=== PATIENT | female | born 2000 | race Hispanic/Latino ===

== ENCOUNTER 2019-01-13 11:11 | Day surgery (SDC) | payer OTHER ==
--- NOTE | 2019-01-13 11:30 | PDOC.FPROB ---
FMR OB H&P: HPI - History of Present Illness Chief Complaint: Contractions, Leaking of fluid Indentification: 18 year old at 36.6 wks by 26.3 wk sono History of Present Illness: 18 year old female at 36.6 wks (MILES 02/04/19) presents with contractions and leaking of fluid. Patient states contractions started around 1 PM yesterday. They were 5-10 minutes apart but not very strong. Patient states that when she woke up in the middle of the night, her panties were soaked. She is concerned that she may have ruptured. Patient denies vaginal bleeding. Patient endorses good movement. Primary Care Physician: Dallas ARGUELLES FMR OB H&P: Current - Care : 1 Para: 0 Gestational age: 36.6 wks Due date: 02/04/2019 Dating Criteria: 26.3 wk sono - OB Labs Blood type: B RH: positive Antibody Screen: negative HIV: negative RPR: negative HepBsAg: negative Rubella: immune Gonorrhea: negative Chlamydia: negative 1 hour gtt: 96 GBS: unknown FMR OB H&P: History - Past Medical History PMH: Denies - OB History OB History: G1 Late to care - [employer] History [employer] History: No history of STDs - Surgical History Sx History: Denies - Social History Social History: Denies alcohol, tobacco, or drug use - Family History Family History: Noncontributory FMR OB H&P: Medications - Current Home Medications: Medication Instructions Recorded Confirmed Type Fluticasone Propionate [Flonase 2 spray EA NARE DAILY #0 bot 05/07/13 Rx Nasal [place]] Acetaminophen [Tylenol] 325 mg PO PRN PRN 01/13/19 01/13/19 History Ferrous Sulfate [Iron] 325 mg PO DAILY 01/13/19 01/13/19 History Vit 108/Iron/Folic AC 1 tablet PO DAILY 01/13/19 01/13/19 History [ One Tablet] Allergies/Adverse Reactions: Allergies Allergy/AdvReac Type Severity Reaction Status Date / Time No Known Allergies Allergy Verified 01/13/19 11:40 FMR OB H&P: ROS - Review of Systems General: denies: fever/chills, weight/appetite/sleep changes Eyes: denies: vision changes, scotomas ENT: denies: nasal congestion, rhinorrhea, sore throat Cardiovascular: denies: chest pain, palpitation, edema Respiratory: denies: cough, congestion Gastrointestinal: denies: nausea, vomiting Genitourinary (Female): reports: contractions, other (leaking of fluid). denies : dysuria, vaginal bleeding Musculoskeletal: denies: pain, stiffness Neurologic: denies: numbness, syncope Hematologic/Lymphatic: denies: prolonged or excessive bleeding Psychological: denies: depression, anxiety FMR OB H&P: Vital Signs - Maternal Vital signs: BP 124/84 Pulse 78 Afebrile - Heart Tones Baseline: 140 Variability: moderate Acceleration: present Deceleration: absent Category: category 1 [place] contractions every: q3-5 min FMR OB H&P: Physical Exam - Physical Exam General: NAD, awake, alert and oriented HEENT: MMM, grossly normal vision, grossly normal hearing Heart: RRR, no murmurs/rubs/gallops General: CTAB, no respiratory distress Abdomen: soft, gravid, non-tender Musculoskeletal: pulses present, FROM in all four extremities Neurological: no tremor, no focal deficit Skin: no rash, capillary refill <2 seconds Lymphatic: no unusual bruising or bleeding, no purpura Psychiatric: intact recent and remote memory, good judgement and insight, normal mood and affect FMR OB H&P: A/P - Problem List (1) Intrauterine Status: Acute Code(s): Z34.90 - ENCNTR FOR SUPRVSN OF NORMAL , UNSP, UNSP TRIMESTER Comment: agree with a&p by dr peña Disposition: 18 year old at 36.6 wks presents with contractions and leaking of fluid 1. sIUP - at 36.6 wks by 26.3 wk sono - uncomplicated - NST reassuring - Cervical check: /0/-3 at 12:25 PM 01/13; contractions on monitor, but patient not feeling them. - Amnisure negative - GBS pending (might have update this afternoon) 2. Leaking of fluid - Amnisure negative (obtained sample from sterile - VP3 pending - Sterile spec exam with moderate amount of white vaginal discharge - Return precautions provided - PO hydrate 3. Elevated BP in clinic with diagnosis of gHTN - Patient sent for pre-E labs on Monday - CMP WNL, Hg/Hct 10.9/34.0, urine protein/creatinine (0.104) - No evidence of Pre-E - BP wnl today Dispo: Plan for d/c. Patient does not appear to be in labor and does not appear to be ruptured. Return precautions provided. Discussion: Date/Time: 01/13/191125 This H&P was discussed with Dr. Valencia who agrees with the above documentation and plan. Signature: Xiao Peña, PGY-2
[2019-01-13 11:52] VITALS: BMI 33.5
[2019-01-13 12:48] LABS: Amnisure Test No Membranes Rupture (No Rupture)
[2019-01-13 12:50] LABS: Amnisure Internal Control QC ACCEPTABLE (ACCEPTABLE)
== END 2019-01-13 13:11 | disposition home health service (06) ==
LOC: L&D/OP 11:11
PROVIDERS: ATTEND Obstetrics & Gynecology
DX: O99.89 Other specified diseases and conditions complicating pregnancy, childbirth and the puerperium (principal); N89.8 Other specified noninflammatory disorders of vagina; O13.3 Gestational [pregnancy-induced] hypertension without significant proteinuria, third trimester; Z3A.36 36 weeks gestation of pregnancy; Z79.899 Other long term (current) drug therapy
CPT/HCPCS: 59025; 84112; 87480; 87510; 87660; 99284

== ENCOUNTER 2019-01-23 00:05 | Inpatient (IN) | payer OTHER ==
[2019-01-23 00:28] VITALS: BMI 34.3
--- NOTE | 2019-01-23 00:53 | PDOC.LDHP ---
Labor and Delivery H&P Chief complaint: loss of fluid HPI: 18 y/o at 38.2 wks by 26wk US presents today with LOF earlier this evening at 2330 She reports continual leaking of clear fluid since that time, intermittent contractions. She is feeling baby move and denies vaginal bleeding, dysuria, or lower pelvic pain. She reports that she had a negative GBS swab in [facility] 3-4 weeks ago, but we do not have record of that. Current gestational age (weeks): 38 (.2) Due date: 02/04/19 Dating criteria: second trimester ultrasound Grav: 1 Para: 0 OB History Details: late to [facility] Current complications: none Abnormal US findings: No Past Medical History: none Current medications: pre- vitamins Previous surgical history: none Allergies/Adverse Reactions: Allergies Allergy/AdvReac Type Severity Reaction Status Date / Time No Known Allergies Allergy Verified 01/13/19 11:40 Social history: none - Physical Exam Vital signs reviewed and normal: yes General: NAD Heart: RRR Lungs: CTAB Abdomen: NTTP Extremeties: no edema FHT: category 1 (baseline 140, accels, no decels), variability present - Vaginal Exam cm dilated: 3 (midposition, soft) Effacement: 50% Station: -2 - OB Labs Blood type: B RH: positive Antibody Screen: negative HIV: negative RPR: negative HEPSAg: negative 1 hour GCT: negative GBS: unknown Urine drug screen: not done Rubella: immune Additional Labs: GC neg - Assessment L&D Assessment: term rupture in membranes - Plan Plan: admit to L&D -: - expectant mgmt, recheck cervix in 2 hours, consider labor augmentation at that time - GBS unknown, less than 18hrs ruptured, no hx of positive GBS culture - continuous monitoring Addendum - Attending - Attending Attestation Date/Time: 01/23/19 5924 I personally evaluated the patient and discussed the management with Dr. Maldonado. I agree with the History, Examination, Assessment and Plan documented above with any addition or exceptions noted below. Early term SROM by best dates available, GBS unknown. Admit for delivery.
[2019-01-23 01:47] LABS: Amnisure Test RUPTURE DETECTED (No Rupture)
[2019-01-23 01:48] LABS: Amnisure Internal Control QC ACCEPTABLE (ACCEPTABLE)
[2019-01-23] MEDS ORDERED: Carboprost 250 MCG/ML AMP IM PRN (01:54)
[2019-01-23] MEDS ORDERED: Lidocaine 1% (PF) 30 ML VIAL SC PRN (01:54)
[2019-01-23] MEDS ORDERED: Ondansetron PF 4 MG/2 ML Vial IVP PRN ×2 (01:54→15:21)
[2019-01-23] MEDS ORDERED: Diphenoxylate HCl/Atropine Tablet PO PRN (01:54)
[2019-01-23] MEDS ORDERED: NS / Oxytocin 40 units/1000ml 1,000 ML IV PRN (01:54)
[2019-01-23] MEDS ORDERED: Promethazine HCl 25 MG/ML VIAL IM PRN ×2 (01:54→15:21)
[2019-01-23] MEDS ORDERED: Methylergonovine 0.2 MG/ML VIAL IM PRN (01:54)
[2019-01-23] MEDS ORDERED: Misoprostol 200 MCG TAB PR PRN (01:54)
[2019-01-23] MEDS ORDERED: Acetaminophen 500 MG TAB PO PRN (01:54)
[2019-01-23 02:42] LABS: Hemoglobin 12.1 g/dL (12.0-16.0); Mean Corpuscular HGB CONC 32.5 g/dL (32.0-36.0); Mean Corpuscular Hemoglobin 25.3 pg (25.0-35.0); Mean Corpuscular Volume 77.9 fL (78.0-98.0); Mean Platelet Volume 11.6 fL (7.4-10.4); Platelet Count 200 thou/uL (130-400); RBC Distribution Width 20.7 % (11.5-14.5); Red Blood Cell (RBC) Count 4.78 mill/uL (4.00-5.20); White Blood Cell (WBC) Count 11.5 thou/uL (4.8-10.8)
[2019-01-23 03:18] LABS: HBSAg Index 0.27 S/CO (0-0.99); Hep B Surf Ag Non-Reactive S/CO (NonReactive)
--- NOTE | 2019-01-23 03:51 | PDOC.LDPN ---
Labor & Delivery Progress Note - Subjective Subjective: painful contractions - Objective Vital signs reviewed and normal: yes General: breathing through contractions Uterine fundus: non tender Dilation: 5 Effacement: 75% Station: -1 FHT: category 1 (baseline 150, accels present, no decels ), variability present [place] contractions every: 3 mins - Assessment (1) Intrauterine Code(s): Z34.90 - ENCNTR FOR SUPRVSN OF NORMAL , UNSP, UNSP TRIMESTER Current Visit: No Status: Acute Plan: continue plan of care -: - expectant mgmt, recheck cervix in 2 hours - GBS unknown, less than 18hrs ruptured, no hx of positive GBS culture - continuous monitoring Addendum - Attending - Attending Attestation Date/Time: 01/23/19 0800 I personally evaluated the patient and discussed the management with Dr. Maldonado. I agree with the History, Examination, Assessment and Plan documented above with any addition or exceptions noted below.
[2019-01-23 04:42] LABS: Syphilis Antibody Nonreactive (Nonreactive); Syphilis Antibody Index 0.03 S/CO (<1.00 Non-Reactive)
--- NOTE | 2019-01-23 07:34 | PDOC.LDPN ---
Labor & Delivery Progress Note - Subjective Subjective: painful contractions - Objective Vital signs reviewed and normal: yes General: NAD Uterine fundus: non tender Dilation: 6 Effacement: 75% Station: -1 FHT: category 1 (baseline 140, no decels, acels present ) [place] contractions every: 4 mins - Assessment (1) Intrauterine Code(s): Z34.90 - ENCNTR FOR SUPRVSN OF NORMAL , UNSP, UNSP TRIMESTER Current Visit: No Status: Acute Plan: continue plan of care -: - expectant mgmt, recheck cervix in 2 hours - GBS unknown, less than 18hrs ruptured, no hx of positive GBS culture - continuous monitoring Addendum - Attending - Attending Attestation Date/Time: 01/23/19 0800 I personally evaluated the patient and discussed the management with Dr. Maldonado. I agree with the History, Examination, Assessment and Plan documented above with any addition or exceptions noted below. Continue expectant management; initiate pit if no change. PCN if ~ 18 hours.
[2019-01-23] MEDS: Butorphanol Tartrate 1 MG/ML VIAL ONE ×2 (09:56→12:45)
--- NOTE | 2019-01-23 10:32 | PDOC.OBLPN ---
FMR OB Labor PN: Subj - Interval History Hospital Day: 1 Chief Complaint: SROM Indentification: Interval History: Progressed to active labor w/o augmentation. No change since last check. FMR OB Labor PN: Obj - Maternal Vital signs: BP: 110/70 HR: 75 - Procedures Resuscitative measures: maternal IV fluids, maternal position change FMR OB Labor PN: Exam - Physical Exam General: NAD, awake, alert and oriented HEENT: normocephalic and atraumatic, grossly normal vision, grossly normal hearing General: no respiratory distress Abdomen: gravid Neurological: cranial nerves II through XII intact, sensation to pain,touch and proprioception grossly normal, no focal deficit Skin: no rash, good tugor Psychiatric: intact recent and remote memory, good judgement and insight, normal mood and affect - Pelvic Exam Vulva: normal hair distribution, appropriate suman stage, no masses, no lesions , no blood SVE: 6/80/-2 Carrillo score: 11 Membranes: ruptured Presentation: cephalic FMR OB Labor PN: Data - Labs Lab results: Laboratory Results - last 24 hr 01/23/19 01/23/19 01/23/19 01:10 02:26 02:26 WBC RBC Hgb Hct MCV MCH MCHC RDW Plt Count MPV Amnio Swab Test RUPTURE DETECTED H Syphilis IgG/IgM Ab Nonreactive Hep Bs Antigen Non-Reactive Blood Type Antibody Screen 01/23/19 01/23/19 01/23/19 02:26 02:26 03:32 WBC 11.5 H RBC 4.78 Hgb 12.1 Hct 37.3 MCV 77.9 L MCH 25.3 MCHC 32.5 RDW 20.7 H Plt Count 200 MPV 11.6 H Amnio Swab Test Syphilis IgG/IgM Ab Hep Bs Antigen Blood Type B POSITIVE B POSITIVE Antibody Screen NEGATIVE FMR OB Labor PN: A/P - Problem List (1) Late care Current Visit: Yes Status: Acute Code(s): O09.30 - SUPRVSN OF PREG W INSUFFICIENT ANTENAT CARE, UNSP TRIMESTER (2) Intrauterine Current Visit: No Status: Acute Code(s): Z34.90 - ENCNTR FOR SUPRVSN OF NORMAL , UNSP, UNSP TRIMESTER Disposition: 18YO @ 38.2 weeks who presented to L&D due to LOF and was found to have ruptured and was in latent labor. sIUP: - SVE check @ ~ 10:00 unchanged from last check @ ~0730 @ 6/-2. Irregular contractions noted on monitor but FHT reassuring w/ baseline in the 130s & variability noted. - No epidural but pain control w/ IV stadol. - Carrillo score of 11 so will start on IV pitocin for labor augmentation. Will recheck in ~2 hours. GBS negative: - Confirmed w/ CPL this AM. No indication for intrapartum abx. Late to care: - Aware, routine labs ordered on admission including type and screen and RPR and Hep B. STI screening negative. Discussion: Date/Time: 01/23/19 1031 This H&P was discussed with Dr. Cardona and Dr. Robison who agree with the above documentation and plan.
[2019-01-23] MEDS: NS w/ Oxytocin 10 units 500 ML IV SCH (11:30)
[2019-01-23] MEDS ORDERED: ePHEDrine/0.9% NaCl/PF SYRINGE 50 mg/10 ml ONE (12:00)
[2019-01-23] MEDS ORDERED: Butorphanol Tartrate 1 MG/ML VIAL SLOW IVP PRN (12:39)
--- NOTE | 2019-01-23 12:43 | PDOC.OBLPN ---
FMR OB Labor PN: Subj - Interval History Hospital Day: 1 Chief Complaint: LOF Indentification: Interval History: Pitocin started around ~10:00. No significant cervical changes since. FMR OB Labor PN: Obj - Maternal Vital signs: BP: 120/83 HR: 73 - Procedures Resuscitative measures: maternal IV fluids, maternal position change FMR OB Labor PN: Exam - Physical Exam General: awake, alert and oriented, other (moderate distress 2/2 painful contractions) HEENT: normocephalic and atraumatic, grossly normal vision, grossly normal hearing General: no respiratory distress Abdomen: gravid Musculoskeletal: FROM in all four extremities Neurological: cranial nerves II through XII intact, sensation to pain,touch and proprioception grossly normal, no focal deficit Skin: no rash, good tugor Psychiatric: intact recent and remote memory, good judgement and insight, normal mood and affect - Pelvic Exam Vulva: normal hair distribution, appropriate suman stage, no discharge, no blood SVE: 6.5/80/-1 Carrillo score: 11 Membranes: SROM Presentation: cephalic FMR OB Labor PN: Data - Labs Lab results: Laboratory Results - last 24 hr 01/23/19 01/23/19 01/23/19 01:10 02:26 02:26 WBC RBC Hgb Hct MCV MCH MCHC RDW Plt Count MPV Amnio Swab Test RUPTURE DETECTED H Syphilis IgG/IgM Ab Nonreactive Hep Bs Antigen Non-Reactive Blood Type Antibody Screen 01/23/19 01/23/19 01/23/19 02:26 02:26 03:32 WBC 11.5 H RBC 4.78 Hgb 12.1 Hct 37.3 MCV 77.9 L MCH 25.3 MCHC 32.5 RDW 20.7 H Plt Count 200 MPV 11.6 H Amnio Swab Test Syphilis IgG/IgM Ab Hep Bs Antigen Blood Type B POSITIVE B POSITIVE Antibody Screen NEGATIVE FMR OB Labor PN: A/P - Problem List (1) Late care Current Visit: Yes Status: Acute Code(s): O09.30 - SUPRVSN OF PREG W INSUFFICIENT ANTENAT CARE, UNSP TRIMESTER (2) Intrauterine Current Visit: No Status: Acute Code(s): Z34.90 - ENCNTR FOR SUPRVSN OF NORMAL , UNSP, UNSP TRIMESTER Disposition: 18YO @ 38.2 weeks who presented to L&D due to LOF and was found to have ruptured membranes in latent labor. sIUP: - SVE check @ ~ 12:30 minimally changed from last check @ ~10:00. Most recent check ~6.5/80/-1. Regular contractions ~q3-4 minutes noted on strip reassuring FHTs w/ baseline in the 130s & variability & accels noted. - No epidural yet per mom so will continue pain control w/ IV stadol Q1H PRN. - Will continue IV pitocin for labor augmentation. Will recheck in ~2 hours or sooner if patient starts feeling more vaginal pressure. GBS negative: - Confirmed w/ CPL this AM. No indication for intrapartum abx. Late to care: - Aware, routine labs ordered on admission. RPR & Hep B screening negative. B+ and Ab negative. Discussion: Date/Time: 01/23/19 5489 This H&P was discussed with Dr. Cardona and Dr. Robison who agree with the above documentation and plan.
[2019-01-23] MEDS ORDERED: Fentanyl 4 mcg/Bup 0.1% Cadd 100 ML ONE (14:35)
[2019-01-23] MEDS ORDERED: Lidocaine 1.5%/Epinephrine 1:200,000 5 ML AMPUL IJ ONE (14:36)
[2019-01-23] MEDS ORDERED: Acetaminophen 325 MG TAB PO PRN (15:21)
[2019-01-23] MEDS ORDERED: ePHEDrine/0.9% NaCl/PF SYRINGE 50 mg/10 ml SLOW IVP PRN (15:21)
[2019-01-23] MEDS ORDERED: Naloxone HCl 0.4 mg/ml Vial IVP PRN ×2 (15:21)
[2019-01-23] MEDS ORDERED: diphenhydrAMINE 50 MG/ML VIAL IVP PRN (15:21)
[2019-01-23] MEDS ORDERED: Eucerin (Mineral Oil/Petrolatum,White) 30 gm Jar TOP PRN (15:21)
[2019-01-23] MEDS ORDERED: Lactated Ringer's 500 ML IV PRN (15:21)
[2019-01-23] MEDS ORDERED: Fentanyl 4 mcg/Bupivacaine 0.1% Cassette 100 ML EPIDURAL SCH (15:30)
[2019-01-23] MEDS ORDERED: Communication Order-Pharmacy FS SCH (15:30)
[2019-01-23] MEDS ORDERED: Milk Of Magnesia 30 ML UDCUP PO PRN (18:01)
[2019-01-23] MEDS ORDERED: Bisacodyl 10 MG SUPP PR PRN (18:01)
[2019-01-23] MEDS ORDERED: Adacel (T-DAP) 0.5 ML SYRINGE IM ONE (18:01)
[2019-01-23] MEDS ORDERED: Lanolin Ointment 7 GM TUBE TOP PRN (18:01)
[2019-01-23] MEDS ORDERED: NS / Oxytocin 40 units/1000ml 1,000 ML IV SCH (18:15)
--- NOTE | 2019-01-23 18:15 | PDOC.OPDEL ---
OB Operative/Delivery Note Delivery Dr/Surgeon: Balwinder Assist: Ronnie Pre-Delivery Diagnosis: ruptured membrane Procedure/Post Delivery Dx: spontaneous vaginal delivery Weeks gestation: 38 (38.2 weeks) Anesthesia: epidural - Additional Findings/Plan Placenta delivered: spontaneous Repaired Obstetrical Laceration: 1st degree Estimated blood loss: 112 mL Compilations/Other Findings: Delivering Physician: Dr. Paris Britt/Dr. Ashley Trujillo Attending: Dr. Ramses Rosado Procedure: Spontaneous Vaginal Delivery Anesthesia: epidural QBL: 112 ml Pre-op Diagnosis: 1. Term intrauterine in labor 2. late to care Post-op Diagnosis: 1. Term intrauterine , delivered 2. same as above Indications: A 18y/o female presents in latent labor after SROM at home. Delivery Note: This is 18yo F @ 38.2 wks who delivered a viable M at 17:40. Following an uneventful antepartum course, a vigorous male was delivered over a 1st degree right side wall laceration in the occipitoanterior position. Anterior Shoulder and then remainder of the body delivered. No nuchal cord. Cord clamped and cut and cord blood collected. Placenta delivered intact in the [place] presentation with a 3 vessel cord noted. Fundal massage was performed and the fundus was firm. The cervix and vagina were inspected and fa first degree laceration was noted in the right side perineal wall and repaired with 2-0 chromic gut in the usual fashion with good approximation and hemostasis. Infant went to nursery in good condition for routine care. Apgars were 9/9 at 1 & 5 minutes, respectively. Patient tolerated delivery well and went to after routine recovery/care. Post delivery plan: routine recovery Addendum - Attending - Attending Attestation Date/Time: 01/23/191909 I was present for the entire delivery and repair. AG 07/15. qbl 112. Counts correct.
[2019-01-23] MEDS: Docusate Calcium (SURFAK) 240 MG CAP PO SCH (22:52)
[2019-01-23] MEDS: Ibuprofen 800 MG TAB PO SCH (22:52)
[2019-01-23] MEDS ORDERED: Benzocaine/Menthol 20-0.5% 60 ML CAN TOP PRN (23:10)
[2019-01-24] MEDS: Ibuprofen 800 MG TAB PO SCH ×3 (05:42→21:04)
[2019-01-24] MEDS ORDERED: Acetaminophen/Codeine 30-300mg Tablet PO PRN (05:42)
--- NOTE | 2019-01-24 05:57 | PDOC.OBPPN ---
FMR OB PN: Subj - Interval History Hospital Day: 2 Day: 1 Indentification: Interval History: PP day #1 s/p w/ 1st degree side wall laceration s/p repair. FMR OB PN: Obj - Maternal Vital signs: BP: 126/75 HR: 99 RR: 16 Tmax: 98.8F O2 Sat: 100% on RA - Pain Management Intervention: oral medication FMR OB PN: Exam - Physical Exam General: NAD, awake, alert and oriented HEENT: normocephalic and atraumatic, MMM, conjunctiva clear, grossly normal vision, grossly normal hearing Neck: supple, FROM Breast: symmetric, no erythema Heart: RRR, normal S1/S2, no murmurs/rubs/gallops, pulses present, no edema General: CTAB, no respiratory distress, good air movement, no rales/rhonchi, no wheezing, no retractions Abdomen: soft, fundus(cm), bowel sound present Musculoskeletal: normal gait and station, FROM in all four extremities Neurological: cranial nerves II through XII intact, sensation to pain,touch and proprioception grossly normal, no focal deficit Skin: no rash, good tugor : appropriately tender Lymphatic: no unusual bruising or bleeding, no purpura, no petechia Psychiatric: intact recent and remote memory, good judgement and insight, normal mood and affect - Pelvic Exam : perineal incision/laceration healing well, sutures intact, no discharge, no edema, normal lochia FMR OB PN: A/P - Problem List (1) Late care Status: Acute Code(s): O09.30 - SUPRVSN OF PREG W INSUFFICIENT ANTENAT CARE, UNSP TRIMESTER (2) Intrauterine Status: Resolved Code(s): Z34.90 - ENCNTR FOR SUPRVSN OF NORMAL , UNSP, UNSP TRIMESTER (3) First degree laceration of perineum, delivered, current hospitalization Status: Acute Code(s): O70.0 - FIRST DEGREE PERINEAL LACERATION DURING DELIVERY Disposition: 18YO @ 38.2 weeks who presented to L&D due to LOF and was found to have ruptured membranes in latent labor. PP day #1 s/p over 1st degree laceration: - Mom reports normal lochia and good pain control on PO meds. Voiding normally but has not yet had a BM. - Desires COCPs for PP control. - . senior quality assurance specialist consulted yesterday. - Will continue routine PP care. GBS negative: - Confirmed w/ CPL yesterday. No indication for intrapartum abx. Late to care: - Aware, routine labs ordered on admission. RPR & Hep B screening negative. Blood type B+ and Ab negative. - MDS pending for infant. Discussion: Date/Time: 01/24/19 7310 This H&P was discussed with Dr. Cardona and Dr. Robison who agree with the above documentation and plan. Addendum - Attending - Attending Attestation Date/Time: 01/27/19 0321 I personally evaluated the patient and discussed the management with Dr. Buitrago on 01/24/19. I agree with the History, Examination, Assessment and Plan documented above with any addition or exceptions noted below.
[2019-01-24] MEDS: Prenatal Vitamin 1 TAB PO SCH (08:06)
[2019-01-24] MEDS: Docusate Calcium (SURFAK) 240 MG CAP PO SCH ×2 (08:06→21:04)
[2019-01-24] MEDS: Ferrous Sulfate 325 MG TAB PO SCH ×2 (08:06→13:47)
[2019-01-24] MEDS: NS w/ Oxytocin 10 units 500 ML IV SCH (13:12)
[2019-01-24] MEDS ORDERED: traMADol HCl 50 MG TAB PO PRN (15:52)
[2019-01-24 16:43] LABS: Amphetamine Not Detected (NotDetected); Barbiturates Screen Not Detected (NotDetected); Benzodiazepine Screen Not Detected (NotDetected); Cocaine Metabolite Screen Not Detected (NotDetected); Medtox Control Line Valid? VALID (VALID); Medtox Reader # READER 4; Methadone Not Detected (NotDetected); Methamphetamine Not Detected (NotDetected); Opiate Screen Detected (NotDetected); Oxycodone Screen Not Detected (NotDetected); Phencyclidine (PCP) Not Detected (NotDetected); THC/Cannabinoid Screen Not Detected (NotDetected); Tricyclic Screen Not Detected (NotDetected)
[2019-01-24 21:28] VITALS: TEMP 97.9
[2019-01-25] MEDS: Ibuprofen 800 MG TAB PO SCH ×2 (05:49→13:39)
[2019-01-25] MEDS ORDERED: HYDROcodone/Acetaminophen 5/325 mg Tablet PO PRN (06:42)
[2019-01-25 08:22] VITALS: BP 111/86
[2019-01-25] MEDS ORDERED: Polyethylene Glycol 3350 17 GM Packet PO SCH (09:00)
[2019-01-25] MEDS: Docusate Calcium (SURFAK) 240 MG CAP PO SCH (09:14)
[2019-01-25] MEDS: Prenatal Vitamin 1 TAB PO SCH (09:14)
[2019-01-25] MEDS: NS w/ Oxytocin 10 units 500 ML IV SCH (09:16)
[2019-01-25] MEDS: Ferrous Sulfate 325 MG TAB PO SCH ×2 (09:16→16:22)
--- NOTE | 2019-01-26 05:48 | PDOC.OBPPN ---
FMR OB PN: Subj - Interval History Hospital Day: 3 Day: 2 Chief Complaint: No BM yet & still has some abdominal cramping, especially when nursing. Indentification: Interval History: PP day #2 s/p . FMR OB PN: Obj - Maternal Vital signs: BP: 111/86 HR: 76 RR: 18 Tmax: 97.9F Pox: 97% on RA Wt: 87 kg - Urine output I&O: 01/24/19 01/25/19 01/26/19 06:59 06:59 06:59 Intake Total 1650 Balance 1650 - Lochia Lochia: normal bleeding - Pain Management Pain scale: 2 Intervention: oral medication FMR OB PN: Exam - Physical Exam General: NAD, awake, alert and oriented HEENT: normocephalic and atraumatic, grossly normal vision, grossly normal hearing Neck: supple, FROM Heart: RRR, normal S1/S2 General: CTAB, no respiratory distress, good air movement, no rales/rhonchi, no wheezing, no retractions Abdomen: soft, bowel sound present Musculoskeletal: normal gait and station, FROM in all four extremities Neurological: cranial nerves II through XII intact, sensation to pain,touch and proprioception grossly normal, no focal deficit Skin: no rash, good tugor Lymphatic: no unusual bruising or bleeding, no purpura, no petechia Psychiatric: intact recent and remote memory, good judgement and insight, normal mood and affect - Pelvic Exam : normal lochia FMR OB PN: A/P - Problem List (1) Late care Status: Acute Code(s): O09.30 - SUPRVSN OF PREG W INSUFFICIENT ANTENAT CARE, UNSP TRIMESTER (2) Intrauterine Status: Resolved Code(s): Z34.90 - ENCNTR FOR SUPRVSN OF NORMAL , UNSP, UNSP TRIMESTER (3) First degree laceration of perineum, delivered, current hospitalization Status: Acute Code(s): O70.0 - FIRST DEGREE PERINEAL LACERATION DURING DELIVERY Disposition: 18YO PP day #2 s/p @ 38.2 weeks over a 1st degree perineal laceration. PP day #2 s/p over 1st degree laceration: - Mom reports normal lochia/bleeding and good pain control on PO meds. Voiding normally but has not yet had a BM. - Desires COCPs for PP control. - and says it is going well. Met with eviction specialist yesterday. - Will continue routine PP care. GBS negative: - Confirmed w/ CPL yesterday. No indication for intrapartum abx. Late to care: - Aware, routine labs ordered on admission. RPR & Hep B screening negative. Blood type B+ and Ab negative. - Baby's MDS + for meth but mom's UDS negative for this. Likely a false + but will have CM come and evaluate patient to determine if safe for baby to go home with mom or not. Dispo: Anticipate d/c home later today. Discussion: Date/Time: 01/25/19 0600 This H&P was discussed with Dr. Cardona and Dr. Robison who agree with the above documentation and plan. Addendum - Attending - Attending Attestation Date/Time: 01/27/19 9738 I personally evaluated the patient and discussed the management with Dr. Buitrago on 01/25/19. I agree with the History, Examination, Assessment and Plan documented above with any addition or exceptions noted below.
== END 2019-01-25 16:45 | disposition home or self-care (01) | DRG 807 ==
LOC: L&D/OP 00:05 → L&D 01:34 → 3SW 20:27
PROVIDERS: ADMIT Emergency Medicine; ATTEND Emergency Medicine
PROC: 10E0XZZ Delivery of Products of Conception, External Approach (ICD-10-PCS; principal; 2019-01-23)
PROC: 0HQ9XZZ Repair Perineum Skin, External Approach (ICD-10-PCS; 2019-01-23)
DX: O70.0 First degree perineal laceration during delivery (principal); Z37.0 Single live birth; Z3A.38 38 weeks gestation of pregnancy
CPT/HCPCS: 36415; 51702; 80306; 84112; 85027; 86780; 86850; 86900; 86901; 87340; 90715; 99285; J0595; J3490

== ENCOUNTER 2019-01-31 18:05 | Emergency (ER) | payer OTHER ==
[2019-01-31] MEDS ORDERED: Acetaminophen 500 MG TAB ONE (18:44)
[2019-01-31 18:50] LABS: #Basophils 0.1 thou/uL (0.0-0.2); #Eosinphils 0.1 thou/uL (0.0-0.7); #Lymphocytes 1.7 thou/uL (1.20-3.40); #Monocytes 0.8 thou/uL (0.11-0.59); #Neutrophils 9.9 thou/uL (1.40-6.50); %Eosinophils 0.9 % (0.0-10.0); %Lymphocytes 13.8 % (28.0-48.0); %Monocytes 6.4 % (0.0-4.0); Hemoglobin 14.1 g/dL (12.0-16.0); Mean Corpuscular HGB CONC 32.4 g/dL (32.0-36.0); Mean Corpuscular Hemoglobin 26.2 pg (25.0-35.0); Mean Platelet Volume 10.3 fL (7.4-10.4); Platelet Count 244 thou/uL (130-400); RBC Distribution Width 19.9 % (11.5-14.5); Red Blood Cell (RBC) Count 5.37 mill/uL (4.00-5.20); White Blood Cell (WBC) Count 12.6 thou/uL (4.8-10.8)
[2019-01-31 18:59] LABS: ALT (SGPT) 30 U/L (8-55); AST (SGOT) 21 U/L (5-30); Albumin 4.3 g/dL (3.5-5.0); Alkaline Phosphatase 147 U/L (40-150); Anion Gap 16 mmol/L (10-20); BUN (Urea Nitrogen) 12 mg/dL (8.4-21.0); Bilirubin, Total 0.3 mg/dL (0.2-1.2); Calc. Creatinine Clearance 0 mL/min (70-130); Calcium 9.9 mg/dL (7.8-10.44); Carbon Dioxide 23 mmol/L (22-29); Chloride 104 mmol/L (98-107); Estimated GFR-MDRD 89; Globulin 3.7 g/dL (2.4-3.5); Glucose 80 mg/dL (70-105); Potassium 3.8 mmol/L (3.5-5.1); Sodium 139 mmol/L (136-145)
[2019-01-31 19:14] LABS: Bilirubin Negative (Negative); Blood, Urine Negative (Negative); Clarity CLEAR (Clear); Glucose, Urine (Dipstick) Negative (Negative); Leukocyte Small (Negative); Nitrite Negative (Negative); Protein, Urine (Dipstick) Negative (Neg-Trace); Specific Gravity, Urine 1.027 (1.002-1.036); pH, Urine 5.5 (5.0-9.0)
[2019-01-31 19:16] LABS: Bacteria/HPF None Seen HPF (None Seen); Hyaline Casts/LPF 4-6 HYALINE CAST LPF (0-3 Hyaline); Pathc Cast-AUWi Flag 0.95 (0-2.49); RBC/HPF None Seen HPF (0-3); Squamous Epithelial 0-3 HPF (0-3); WBC/HPF 0-3 HPF (0-3)
[2019-01-31 19:20] LABS: Renal Epithelial None Seen HPF (0-3); Transitional Epithelial NONE SEEN HPF (0-3)
--- NOTE | 2019-01-31 20:56 | ULT ---
PELVIC SONOGRAM TRANSABDOMINAL IMAGING WITH DUPLEX EVALUATION 01/31/19 HISTORY: Recent . Ongoing bleeding. Seven days . FINDINGS: The urinary bladder is decompressed. The uterus remains enlarged at 14.0 cm. Minimal fluid within the endometrium. No free fluid in the pelvis. Left ovary is 3.0 cm with good color and spectral doppler flow. Right ovary not well visualized. IMPRESSION: Minimal residual fluid in the endometrial cavity. No evidence of retained products of conception. POS: [facility]
== END 2019-01-31 20:40 | disposition home or self-care (01) ==
LOC: ERS 18:05
DX: O99.89 Other specified diseases and conditions complicating pregnancy, childbirth and the puerperium (principal); R10.30 Lower abdominal pain, unspecified; R50.9 Fever, unspecified
CPT/HCPCS: 76856; 80053; 81003; 81015; 83605; 85025; 87040; 87086; 93976; 96360; 96361; A4353

== ENCOUNTER 2020-09-10 12:04 | Day surgery (SDC) | payer OTHER ==
[2020-09-10 12:39] VITALS: BMI 49.9
--- NOTE | 2020-09-10 12:50 | PDOC.FPROB ---
FMR OB H&P: HPI - History of Present Illness Chief Complaint: swelling History of Present Illness: 19 y/o @ 37.1 wks dated by LMP c/w 9.0 wk sono Pt sent over from [facility] due to elevated BP's and swelling increasing over the last week. She c/o hand and foot swelling that makes it difficult for her to completely close her fingers or wiggle her toes. Endorses some numbness in her L foot which she attributes to the swelling. Checked her blood pressure at home yesterday and was 137/88, which concerned her. Endorses some R flank pain as well - described as sharp pain that is worse when moving or lifting her son. Evaluated at [facility] this AM, reported elevated BP and 1+ proteinuria. Sent here for further evaluation of pre-eclampsia and possible induction if needed. Denies headache, vision changes, chest pain, palpitations, SOB at rest, abdominal pain, dysuria, hematuria. Endorses good movement, denies vaginal bleeding, discharge, or LOF. FMR OB H&P: Current - Care : 2 Para: 1001 Gestational age: 37.1 by LMP/9wk sono Due date: 09/30/20 Course/Complications: short interval - last 01/2019 - OB Labs Blood type: B RH: positive Antibody Screen: negative HIV: negative RPR: negative HepBsAg: negative Rubella: immune Quad screen: unknown Urine drug screen: not done Gonorrhea: negative Chlamydia: negative A1c: 5.2 FMR OB H&P: History - Past Medical History PMH: hypothyroid - OB History OB History: s/p uncomplicated in 01/2019 - Surgical History Sx History: denies - Social History Social History: denies tobacco, etoh or drug use during or before - Family History Family History: family hx cfDNA carrier, patient screen negative FMR OB H&P: Medications - Current Home Medications: Medication Instructions Recorded Confirmed Type Levothyroxine Sodium [Synthroid] 1 tab PO DAILY 09/10/20 09/10/20 History Vit37/Iron/Folic Acid 1 tab PO DAILY 09/10/20 09/10/20 History [Prenata Chewable Tablet] Allergies/Adverse Reactions: Allergies Allergy/AdvReac Type Severity Reaction Status Date / Time No Known Allergies Allergy Verified 01/13/19 11:40 FMR OB H&P: ROS - Review of Systems General: denies: fever/chills, weight/appetite/sleep changes, fatigue Eyes: denies: vision changes, double vision ENT: denies: nasal congestion, rhinorrhea, sore throat Cardiovascular: reports: edema. denies: chest pain, palpitation, orthopnea Respiratory: reports: shortness of breath. denies: cough, congestion Gastrointestinal: denies: abdominal pain, nausea, vomiting, diarrhea, constipation Genitourinary (Female): reports: polyuria. denies: dysuria, hematuria Musculoskeletal: reports: pain (low back pain) Neurologic: reports: numbness. denies: headache Integumentary: denies: rash Endocrine: reports: polyuria FMR OB H&P: Vital Signs - Maternal Vital signs: BP 128/76 - Heart Tones Baseline: 140 Variability: moderate FMR OB H&P: Physical Exam - Physical Exam General: NAD, awake, alert and oriented HEENT: normocephalic and atraumatic, MMM, conjunctiva clear, no scleral icterus, grossly normal vision, grossly normal hearing, good dention Neck: supple, no LAD Chest: non-tender to palpation Heart: RRR, normal S1/S2, no murmurs/rubs/gallops, pulses present Deviation from normal: no pitting edema, subjective edema General: CTAB, no respiratory distress, no rales/rhonchi, no wheezing Abdomen: soft, gravid, non-tender Musculoskeletal: pulses present Neurological: sensation to pain,touch and proprioception grossly normal, DTR +2, no clonus Skin: no rash Lymphatic: no unusual bruising or bleeding Psychiatric: intact recent and remote memory, good judgement and insight, normal mood and affect FMR OB H&P: A/P Disposition: sIUP at 37.1 wks Sonny Discussion: Date/Time: 09/10/20 1250 This H&P was discussed with [] and [] who agree with the above documentation and plan.
[2020-09-10] MEDS ORDERED: hydrALAZINE 20 MG/ML VIAL SLOW IVP PRN (12:56)
[2020-09-10 13:23] LABS: #Eosinphils 0.1 thou/uL (0.0-0.7); #Lymphocytes 2.2 thou/uL (1.20-3.40); #Monocytes 0.9 thou/uL (0.11-0.59); #Neutrophils 8.1 thou/uL (1.40-6.50); %Basophils 0.3 % (0.0-1.0); %Eosinophils 0.8 % (0.0-10.0); %Lymphocytes 19.2 % (28.0-48.0); %Monocytes 8.3 % (0.0-4.0); %Neutrophils 71.4 % (31.0-61.0); Hemoglobin 12.7 g/dL (12.0-16.0); Mean Corpuscular Hemoglobin 29.3 pg (25.0-35.0); Mean Platelet Volume 10.4 fL (7.4-10.4); Platelet Count 179 thou/uL (130-400); RBC Distribution Width 13.6 % (11.5-14.5); Red Blood Cell (RBC) Count 4.35 mill/uL (4.00-5.20); White Blood Cell (WBC) Count 11.4 thou/uL (4.8-10.8)
[2020-09-10 13:44] LABS: ALT (SGPT) 12 U/L (8-55); AST (SGOT) 12 U/L (5-34); Albumin 3.3 g/dL (3.5-5.0); Alkaline Phosphatase 155 U/L (40-100); Anion Gap 10 mmol/L (10-20); BUN (Urea Nitrogen) 8 mg/dL (7.0-18.7); Bilirubin, Total 0.2 mg/dL (0.2-1.2); Calc. Creatinine Clearance 312 mL/min (70-130); Carbon Dioxide 22 mmol/L (22-29); Chloride 107 mmol/L (98-107); Estimated GFR-MDRD Greater than 90; Glucose 78 mg/dL (70-105); Protein, Total 6.3 g/dL (6.0-8.3); Sodium 135 mmol/L (136-145)
[2020-09-10 13:52] LABS: Creatinine, Urine 32.19 mg/dL (47-110); Protein, Urine Random Quant Less than 10 mg/dL (1-14)
--- NOTE | 2020-09-10 14:07 | PDOC.FPROB ---
FMR OB H&P: HPI - History of Present Illness Chief Complaint: elevated BP History of Present Illness: @ 37w1d by LMP c/w 9w0d sonmaggy was sent over from [facility] for elevated bp x 2 (140 systolic x 2). She is doing well, c/o some swelling. Denies headaches/vision changes/GISELLE or RUQ pain. No ctx, vb, or LOF. FMR OB H&P: Current - Care : 2 Para: 1 Gestational age: 37.1 - OB Labs Blood type: B RH: positive Antibody Screen: negative HIV: negative RPR: negative HepBsAg: negative Rubella: immune Quad screen: unknown Urine drug screen: not done Chlamydia: negative 1 hour gtt: Neg 2 hour GBS: negative FMR OB H&P: History - Past Medical History PMH: hypothyroidism - OB History OB History: 1. TSVD, no complications - PEGGER History PEGGER History: denies h/o abd paps/STIs - Surgical History Sx History: Denies - Social History Social History: denies SHYANNE - Family History Family History: Colon cancer dx @ age 42, lung cancer, liver cancer FMR OB H&P: Medications - Current Home Medications: Medication Instructions Recorded Confirmed Type Levothyroxine Sodium [Synthroid] 1 tab PO DAILY 09/10/20 09/10/20 History Vit37/Iron/Folic Acid 1 tab PO DAILY 09/10/20 09/10/20 History [Prenata Chewable Tablet] Allergies/Adverse Reactions: Allergies Allergy/AdvReac Type Severity Reaction Status Date / Time No Known Allergies Allergy Verified 01/13/19 11:40 FMR OB H&P: ROS - Review of Systems Cardiovascular: reports: other (swelling) FMR OB H&P: Vital Signs - Maternal Vital signs: BPs all WNL thus far, other vitals reviewed - Heart Tones Baseline: 150 Variability: moderate Acceleration: absent Deceleration: absent Category: category 1 [place] contractions every: rare FMR OB H&P: Physical Exam - Physical Exam General: NAD HEENT: normocephalic and atraumatic, PERRLA Heart: RRR, other (minimal edema) General: CTAB, no respiratory distress Abdomen: soft, gravid, non-tender, other (cephalic by leopolds) Musculoskeletal: FROM in all four extremities Skin: no rash, good tugor, capillary refill <2 seconds Lymphatic: no unusual bruising or bleeding, no purpura Psychiatric: intact recent and remote memory, good judgement and insight, normal mood and affect FMR OB H&P: Results - Labs Lab results: Laboratory Results - last 24 hr 09/10/20 09/10/20 09/10/20 13:01 13:07 13:11 WBC RBC Hgb Hct MCV MCH MCHC RDW Plt Count MPV Neutrophils % Lymphocytes % Monocytes % Eosinophils % Basophils % Neutrophils # Lymphocytes # Monocytes # Eosinophils # Basophils # Sodium 135 L Potassium 4.0 Chloride 107 Carbon Dioxide 22 Anion Gap 10 BUN 8 Creatinine 0.58 L Estimated GFR (MDRD) Greater than 90 Glucose 78 Lactic Acid Calcium 9.0 Total Bilirubin 0.2 AST 12 ALT 12 Alkaline Phosphatase 155 H Serum Total Protein 6.3 Albumin 3.3 L Globulin 3.0 Albumin/Globulin Ratio 1.1 L U Random Total Protein Less than 10 Ur Random Uric Acid 25.7 Urine Creatinine 32.19 L 09/10/20 09/10/20 13:11 13:11 WBC 11.4 H RBC 4.35 Hgb 12.7 Hct 37.4 MCV 86.0 MCH 29.3 MCHC 34.0 RDW 13.6 Plt Count 179 MPV 10.4 Neutrophils % 71.4 H Lymphocytes % 19.2 L Monocytes % 8.3 H Eosinophils % 0.8 Basophils % 0.3 Neutrophils # 8.1 H Lymphocytes # 2.2 Monocytes # 0.9 H Eosinophils # 0.1 Basophils # 0.0 Sodium Potassium Chloride Carbon Dioxide Anion Gap BUN Creatinine Estimated GFR (MDRD) Glucose Lactic Acid 1.0 Calcium Total Bilirubin AST ALT Alkaline Phosphatase Serum Total Protein Albumin Globulin Albumin/Globulin Ratio U Random Total Protein Ur Random Uric Acid Urine Creatinine FMR OB H&P: A/P - Problem List (1) Elevated blood pressure reading Current Visit: Yes Status: Acute Code(s): R03.0 - ELEVATED BLOOD-PRESSURE READING, W/O DIAGNOSIS OF HTN (2) Late care Current Visit: No Status: Acute Code(s): O09.30 - SUPRVSN OF PREG W INSUFFICIENT ANTENAT CARE, UNSP TRIMESTER Disposition: PreE r/o -4 hours bp monitoring -bp labs -continuous FHT -dispo pending completion of workup. Discussion: Date/Time: 09/10/20 1405 This H&P was discussed with [] and [] who agree with the above documentation and plan.
--- NOTE | 2020-09-10 16:44 | PDOC.BPN ---
- Brief Progress Note pre-e labs neg BP wnl while in obs for 4 hours. discharged home with return precautions. will f/u in [facility] on Monday for close f/u.
[2020-09-11] MEDS ORDERED: FLU VACC QS2020-21(6MOS UP)/PF 60 MCG/0.5 ML SYRINGE IM ONE (09:00)
== END 2020-09-10 16:40 | disposition home health service (06) ==
LOC: L&D/OP 12:04
PROVIDERS: ATTEND Emergency Medicine
DX: O99.891 Other specified diseases and conditions complicating pregnancy (principal); R03.0 Elevated blood-pressure reading, without diagnosis of hypertension; O99.283 Endocrine, nutritional and metabolic diseases complicating pregnancy, third trimester; E03.9 Hypothyroidism, unspecified; O09.33 Supervision of pregnancy with insufficient antenatal care, third trimester; Z3A.37 37 weeks gestation of pregnancy; Z79.899 Other long term (current) drug therapy
CPT/HCPCS: 36415; 80053; 82570; 83605; 84156; 84560; 85025

== ENCOUNTER 2020-09-21 08:19 | Outpatient (CLI) | payer MEDICAID ==
[2020-09-21 23:15] LABS: SARS-CoV-2 MS2 Positive; SARS-CoV-2 N Gene Negative; SARS-CoV-2 S Gene Negative; SARS-CoV-2 by NAA Not Detected (NotDetected); SARS-CoV-2 orf1ab Negative
== END 2020-09-21 08:20 | disposition home or self-care (01) ==
LOC: LABBT 08:19
PROVIDERS: ATTEND Family Medicine
DX: Z01.812 Encounter for preprocedural laboratory examination (principal); Z20.828 Contact with and (suspected) exposure to other viral communicable diseases
CPT/HCPCS: 87635; U0003

== ENCOUNTER 2020-09-24 19:15 | Inpatient (IN) | payer MEDICAID, OTHER ==
[~2020-09-24 19:15] MED LIST: Bupivacaine 0.25% HCL 30 ML VIAL ONE; Bupivacaine PF 0.5% 30 ML VIAL ONE
[2020-09-24 21:49] VITALS: BMI 40.7
[2020-09-24] MEDS ORDERED: Misoprostol 200 MCG TAB PR PRN (22:06)
[2020-09-24] MEDS ORDERED: Carboprost 250 MCG/ML AMP IM PRN (22:06)
[2020-09-24] MEDS ORDERED: Ondansetron PF 4 MG/2 ML Vial IVP PRN (22:06)
[2020-09-24] MEDS ORDERED: Promethazine HCl 25 MG/ML VIAL IM PRN (22:06)
[2020-09-24] MEDS ORDERED: hydrALAZINE 20 MG/ML VIAL SLOW IVP PRN (22:06)
[2020-09-24] MEDS ORDERED: Ibuprofen 800 MG TAB PO PRN (22:06)
[2020-09-24] MEDS ORDERED: Methylergonovine 0.2 MG/ML VIAL IM PRN (22:06)
[2020-09-24] MEDS ORDERED: Lidocaine 1% (PF) 30 ML VIAL SC PRN (22:06)
--- NOTE | 2020-09-24 22:09 | PDOC.FPROB ---
FMR OB H&P: HPI - History of Present Illness Chief Complaint: eIOL History of Present Illness: 19 y/o @ 39.1 wks by 9 wk sono presents for eIOL. Endorses good movement. Reports thick, mucus-like, blood tinged discharge around 1300 today. Denies any additional vaginal discharge, vaginal bleeding. Endorses intermittent contractions, currently every 5-6 min. Good movement. No LOF. Endorses foot, hand swelling and borderline blood pressures over the past 2 months. Evaluated in triage 2 weeks ago and did not have pre-eclampsia at that time. Denies headache, vision changes, RUQ pain, chest pain, SOB, palpitations. Not on ASA for ppx. Primary Care Physician: KINDRA Garcia FMR OB H&P: Current - Care : 2 Para: 1001 Gestational age: 39.1 by LMP/9 wk sono Due date: 09/30/20 Dating Criteria: unsure LMP/9 wk sono Course/Complications: short interval - last delivery 01/06/2019 excessive weight gain - OB Labs Blood type: B RH: positive Antibody Screen: negative HIV: negative RPR: negative HepBsAg: negative Rubella: immune Gonorrhea: negative Chlamydia: negative 1 hour gtt: 2 hr: 73/95/97 GBS: negative H&H: Hgb 12.0 on 08/17/20 FMR OB H&P: History - Past Medical History PMH: Gregorio thyroiditis - OB History OB History: Previous x 1 without complications - Surgical History Sx History: denies past surgical hx - Social History Social History: denies tobacco, etoh, drug use - Family History Family History: sister- autism, other - colon cancer dx @ age 42, lung cancer, liver cancer FMR OB H&P: Medications - Current Home Medications: Medication Instructions Recorded Confirmed Type Levothyroxine Sodium [Synthroid] 1 tab PO DAILY 09/10/20 09/24/20 History Vit37/Iron/Folic Acid 1 tab PO DAILY 09/10/20 09/24/20 History [Prenata Chewable Tablet] Allergies/Adverse Reactions: Allergies Allergy/AdvReac Type Severity Reaction Status Date / Time No Known Allergies Allergy Verified 09/24/20 21:43 FMR OB H&P: Physical Exam - Pelvic Exam SVE: 1/75/-2 Paul score: 5 Membranes: intact Presentation: cephalic on bedside sono FMR OB H&P: A/P Disposition: @ 39.1 wks by 9 wk sono/unsure LMP presents for eIOL: sIUP @ 39.1 wks, eIOL . Cephalic on bedside sono. GBS negative. - Desires epidural eventually, tolerating ctx at this time. - SVE @ 2300 /-2, paul 5, ctx q5-10 min per patient c/w toco - continue FHT monitoring - plan for cytotec - recheck SVE in 3-4 hours gHTN BP wnl today. Pt reports SBPs 135-145 at home, no reported severe range pressures. Negative w/u for pre-eclampsia 2 weeks ago, no s/s Pre-E on ROS/exam today - Pt not on ASA - Baseline Hemagram and CMP wnl, spot urine pro/cr pending - will monitor BP and for s/s pre-e closely Short interpregnancy interval - last delivery 01/2019 - aware Gregorio's - aware, on synthroid Family hx of autism and T21 -negative cfDNA and carrier screeninng Obesity -BMI 33 Excessive weight gain of - aware Discussion: Date/Time: 09/24/202208 This H&P was discussed with Dr. Downey and Dr. Richards who agree with the above documentation and plan. Addendum - Attending - Attending Attestation Date/Time: 09/24/202348 I personally evaluated the patient and discussed the management with Dr. Bustos I agree with the History, Examination, Assessment and Plan documented above with any addition or exceptions noted below - 19 @ 39.1 weeks with h/o Gregorio's thyroiditis here for elective induction. Denies any LOF, VB (+) Fm; occ ctx. Afebrile VSS. SVE /-2. FHTs- Cat 1. [place] ctx q15 min. A/P: 1) IUP@ 39.1 weeks admitted for elective induction. Start cytotec for cervical ripening.
[2020-09-24] MEDS: Misoprostol 100 MCG TAB VAG SCH (23:14)
[2020-09-24 23:21] LABS: Hemoglobin 12.4 g/dL (12.0-16.0); Mean Corpuscular Hemoglobin 29.8 pg (25.0-35.0); Mean Corpuscular Volume 87.4 fL (78.0-98.0); Platelet Count 150 thou/uL (130-400); RBC Distribution Width 14.3 % (11.5-14.5); Red Blood Cell (RBC) Count 4.16 mill/uL (4.00-5.20); White Blood Cell (WBC) Count 10.7 thou/uL (4.8-10.8)
[2020-09-24 23:36] LABS: ALT (SGPT) 10 U/L (8-55); AST (SGOT) 12 U/L (5-34); Albumin 3.3 g/dL (3.5-5.0); Alkaline Phosphatase 167 U/L (40-100); Anion Gap 15 mmol/L (10-20); BUN (Urea Nitrogen) 15 mg/dL (7.0-18.7); Bilirubin, Total 0.2 mg/dL (0.2-1.2); Calc. Creatinine Clearance 214 mL/min (70-130); Calcium 9.3 mg/dL (7.8-10.44); Carbon Dioxide 20 mmol/L (22-29); Chloride 106 mmol/L (98-107); Estimated GFR-MDRD Greater than 90; Globulin 2.6 g/dL (2.4-3.5); Glucose 89 mg/dL (70-105); Protein, Total 5.9 g/dL (6.0-8.3); Sodium 137 mmol/L (136-145)
[2020-09-24 23:53] LABS: HBSAg Index 0.17 S/CO (0-0.99); Hep B Surf Ag Non-Reactive S/CO (NonReactive); Syphilis Antibody Nonreactive (Nonreactive); Syphilis Antibody Index 0.03 S/CO (<1.00 Non-Reactive)
[2020-09-25 03:05] LABS: Creatinine, Urine 124.93 mg/dL (47-110)
[2020-09-25] MEDS: Misoprostol 100 MCG TAB VAG SCH (03:17)
--- NOTE | 2020-09-25 03:20 | PDOC.LDPN ---
Labor & Delivery Progress Note - Subjective Subjective: comfortable - Objective Vital signs reviewed and normal: yes General: NAD, resting SVE: /-2 FHT: category 1, variability present [place] contractions every: 5-10 -: sIUP @ 39.1 wks, eIOL . Cephalic on bedside sono. GBS negative. - Desires epidural eventually, tolerating ctx at this time. - SVE @ 2300 /-2, paul 5, ctx q5-10 min per patient c/w toco; cytotec placed - SVE @ 0300 /-2, FHR 140/mod/+accel - continue FHT monitoring - will place 2nd dose cytotec - recheck SVE in 3-4 hours gHTN BP wnl today. Pt reports SBPs 135-145 at home, no reported severe range pressures. Negative w/u for pre-eclampsia 2 weeks ago, no s/s Pre-E on ROS/exam today - Pt not on ASA - Baseline Hemagram and CMP wnl, spot urine pro/cr pending - will monitor BP and for s/s pre-e closely Short interpregnancy interval - last delivery 01/2019 - aware Gregorio's - aware, on synthroid Family hx of autism and T21 -negative cfDNA and carrier screeninng Obesity -BMI 33 Excessive weight gain of - aware Discussed with Dr. Richards. Breonna Bustos, DO, PGY-1
[2020-09-25] MEDS ORDERED: DISCONTINUE ALL PREVIOUS NARCOTICS FS SCH (07:15)
[2020-09-25] MEDS ORDERED: Bupivacaine 0.5% 20 ML, fentaNYL Citrate/PF 400 MCG in Sodium Chloride 0.9% 72 ML EPIDURAL SCH (07:15)
--- NOTE | 2020-09-25 07:21 | PDOC.LDPN ---
Labor & Delivery Progress Note - Subjective Subjective: comfortable - Objective Vital signs reviewed and normal: yes General: NAD Uterine fundus: non tender Dilation: 4 Effacement: 75% Station: -2 FHT: category 1 (FHT 140 baseline, + accels, no decels, moderate variability) [place] contractions every: 2 min Plan: continue plan of care -: sIUP @ 39.1 wks, eIOL . Cephalic on bedside sono. GBS negative. - SVE @ 2300 /-2, paul 5, ctx q5-10 min per patient c/w toco; cytotec placed - SVE @ 0300 /-2, cat 1 strip - SVE @ 0700 /-2, cat 1 strip - continue FHT monitoring gHTN BP wnl today. Pt reports SBPs 135-145 at home, no reported severe range pressures. Negative w/u for pre-eclampsia 2 weeks ago, no s/s Pre-E on ROS/exam today - Pt not on ASA - Baseline Hemagram and CMP wnl - Protein/creatinine ratio 0.11 - Continue to monitor BP and for s/s pre-e closely Short interpregnancy interval - last delivery 01/2019 - aware Gregorio's - aware, on synthroid Family hx of autism and T21 -negative cfDNA and carrier screeninng Obesity -BMI 33 Excessive weight gain of - aware Dispo: Epidural will be placed. Next cervical check Q4H Addendum - Attending - Attending Attestation Date/Time: 09/25/20 3513 I personally evaluated the patient and discussed the management with Dr. Mahoney. I agree with the History, Examination, Assessment and Plan documented above with any addition or exceptions noted below.
[2020-09-25] MEDS ORDERED: Ondansetron PF 4 MG/2 ML Vial IVP PRN (09:29)
[2020-09-25] MEDS ORDERED: Lactated Ringer's 500 ML IV PRN (09:29)
[2020-09-25] MEDS ORDERED: ePHEDrine 50 MG/ML VIAL SLOW IVP PRN (09:29)
[2020-09-25] MEDS ORDERED: Promethazine HCl 25 MG/ML VIAL IM PRN (09:29)
[2020-09-25] MEDS ORDERED: diphenhydrAMINE 50 MG/ML VIAL IVP PRN (09:29)
[2020-09-25] MEDS ORDERED: Naloxone HCl 0.4 mg/ml Vial IVP PRN ×2 (09:29)
[2020-09-25] MEDS ORDERED: Communication Order-Pharmacy FS SCH (09:30)
[2020-09-25] MEDS ORDERED: Fentanyl 4 mcg/Bupivacaine 0.1% Cassette 100 ML EPIDURAL SCH (09:30)
[2020-09-25] MEDS ORDERED: NS w/ Oxytocin 10 units 500 ML IV SCH (11:30)
--- NOTE | 2020-09-25 14:42 | PDOC.BPN ---
- Brief Progress Note Checked on patient with Dr Thomas. This morning she had made progress, but FHTs were Cat 2 intermittently. This resolved to a Cat 1 during the lunch hour and we were able to start Pitocin augmentation. However, in the past several minutes late decels were noted and so position change and titrating down the pitocin have been initiated. Maternal vitals normal. Cx is 5/90/-1 which is progressing from her last check this morning. Patient and engaged in the discussion.
--- NOTE | 2020-09-25 16:00 | PDOC.BPN ---
- Brief Progress Note Called to attend delivery. FHT noted to have prolonged decel. Arrived to room with Dr Thomas prepared to deliver. Complete dilation and +4 station. shortly after arrival. See delivery note for details.
[2020-09-25] MEDS ORDERED: NS / Oxytocin 40 units/1000ml 1,000 ML IV SCH (16:31)
[2020-09-25] MEDS ORDERED: Milk Of Magnesia 30 ML UDCUP PO PRN (16:31)
[2020-09-25] MEDS ORDERED: Bisacodyl 10 MG SUPP PR PRN (16:31)
[2020-09-25] MEDS: NS / Oxytocin 40 units/1000ml 1,000 ML IV PRN (16:31)
[2020-09-25] MEDS ORDERED: hydrALAZINE 20 MG/ML VIAL SLOW IVP PRN (16:31)
[2020-09-25] MEDS ORDERED: Ferrous Sulfate 325 MG TAB PO SCH (17:00)
--- NOTE | 2020-09-25 17:06 | PDOC.OPDEL ---
OB Operative/Delivery Note Delivery Dr/Surgeon: Ricki Thomas Pre-Delivery Diagnosis: elective induction Anesthesia: epidural - Additional Findings/Plan Placenta delivered: spontaneous Estimated blood loss: 120 Compilations/Other Findings: Delivering Physician: William Attending: Ricki Procedure: Spontaneous Vaginal Delivery Anesthesia: epidural EBL: 120 ml Pre-op Diagnosis: 1. Term intrauterine in labor, elective induction of labor 2. Gestational HTN 3. Short IPI 4. Excessive weight gain 5. Gregorio thyroiditis 6. Family hx T21 Post-op Diagnosis: 1. Term intrauterine , delivered 2-6. Same as above Indications: A 19y/o female presented for eIOL Delivery Note: This is 19yo F at 39.2 wks who delivered a viable M on 09/25 at 1516 via precipitous . Following an antepartum course marked by late decelerations and bradycardia with a fast vaginal delivery a vigorous M was delivered over an intact perineum in the occipitoanterior posit ion. Anterior Shoulder and then remainder of the body delivered. No nuchal cord. The head was held down and mouth and nares were bulb suctioned. Cord clamped and cut and cord blood collected. Placenta delivered intact with a 3 vessel cord noted. Fundal massage was performed and the fundus was firm. The cervix and vagina were inspected and found tohave hemostatic bilateral vaginal sidewall lacerations. Infant went to nursery in good condition for routine care. Apgars were 5/9 at 1 & 5 minutes, respectively. Patient tolerated delivery well and went to after routine recovery/care. Post delivery plan: routine recovery
[2020-09-25 17:24] LABS: Analyzer IN Cardio OR
[2020-09-25 17:25] LABS: pH (Cord, venous) 7.12 (7.32-7.43)
[2020-09-25 17:26] LABS: Actual Bicarbonate (HCO3v) 23 mEq/L (22-28); Base Excess -8.8 mEq/L (-2.0 to +3.0)
[2020-09-25 17:28] LABS: Actual Bicarbonate (HCO3a) 21.8 mEq/L (22-28); Analyzer IN Cardio OR; Base Excess (BEa) -10.5 mEq/L (-2.0 to +3.0)
[2020-09-25] MEDS ORDERED: Butorphanol Tartrate 1 MG/ML VIAL ONE (17:31)
[2020-09-25] MEDS ORDERED: Butorphanol Tartrate 1 MG/ML VIAL SLOW IVP SCH (18:00)
[2020-09-25] MEDS ORDERED: Docusate Calcium (SURFAK) 240 MG CAP PO SCH (21:00)
[2020-09-25] MEDS: Ibuprofen 800 MG TAB PO SCH (21:25)
[2020-09-26] MEDS: Misoprostol 100 MCG TAB VAG SCH (03:20)
[2020-09-26] MEDS: Ibuprofen 800 MG TAB PO SCH ×2 (05:20→14:26)
--- NOTE | 2020-09-26 06:58 | PDOC.PP ---
Post Progress Note Post Day #: 1 Subjective: Doing well. Mild back pain from epidural but improving and controlled with motrin. Tolerating PO well without n/v. Passing flatus, voiding. Amb pain appropriate and well controlled. Ambulating. Denies CP, SOB, [place], vision changes. Eager for discharge today if possible. PO intake tolerated: yes Flatus: yes Ambulation: yes Vital Signs (12 hours) Temp Pulse Resp BP Pulse Ox 09/26/20 05:20 98.2 F 72 18 126/76 09/26/20 00:05 98.1 F 84 16 122/74 09/25/20 19:54 98.2 F 88 16 129/74 98 Weight Weight 104.326 kg - Physical Examination General: NAD Cardiovascular: no m/r/g, RRR Respiratory: clear to auscultation bilaterally Abdominal: + bowel sounds, no distention, appropriately TTP Fundus firm & at: below umbilicus Neurological: no gross focal deficits Psychiatric: A&Ox3, normal affect Result Diagrams: 09/24/20 23:10 09/24/20 23:10 Additional Labs: Post Labs Hep Bs Antigen Non-Reactive S/CO (NonReactive) 09/24/20 23:10 Blood Type B POSITIVE 09/24/20 23:10 - Assessment/Plan 19yo s/p @ 1516 on 09/25/20 @ 39.1wk #PPD#1 s/p - QBL 325cc - GBS negative - No complications or lacerations during delivery - Routine PP care - Eager for discharge today pending baby bilirubin #gHTN - Baseline Hemagram and CMP wnl. Protein/creatinine ratio 0.11 - BPs since delivery all WNL #Gregorio's - cont synthroid PCP: PN - [facility]unn IVF: SL Diet: Regular VTE: Ambulation Dispo: Routine PP care. Possible discharge this afternoon pending clinical course and baby's course. Addendum - Attending - Attending Attestation Date/Time: 09/26/20 8899 I personally evaluated the patient and discussed the management with Dr. Garcia I agree with the History, Examination, Assessment and Plan documented above with any addition or exceptions noted below. anticipate d/c home later today. discussed s/s of pre-e. Has home BP monitor. Check BID and f/u at [facility] on monday or monday. Patient will call monday morning to make appointment.
[2020-09-26] MEDS: Acetaminophen 325 MG TAB PO PRN ×2 (08:44→17:56)
[2020-09-26] MEDS ORDERED: Adacel (T-DAP) 0.5 ML SYRINGE IM ONE (09:00)
[2020-09-26] MEDS ORDERED: Prenatal Vitamin 1 TAB PO SCH (09:00)
[2020-09-26] MEDS ORDERED: Levothyroxine Sodium 50 MCG TAB PO SCH (09:00)
[2020-09-26 15:51] VITALS: BP 140/69; TEMP 98.7
== END 2020-09-26 18:05 | disposition home or self-care (01) | DRG 807 ==
LOC: L&D 21:10 → 3SW 09-25 18:37
PROVIDERS: ADMIT Family Medicine; ATTEND Family Medicine
PROC: 10E0XZZ Delivery of Products of Conception, External Approach (ICD-10-PCS; principal; 2020-09-25)
PROC: 10907ZC Drainage of Amniotic Fluid, Therapeutic from Products of Conception, Via Natural or Artificial Opening (ICD-10-PCS; 2020-09-25)
PROC: 3E0P7VZ Introduction of Hormone into Female Reproductive, Via Natural or Artificial Opening (ICD-10-PCS; 2020-09-25)
PROC: 3E033VJ Introduction of Other Hormone into Peripheral Vein, Percutaneous Approach (ICD-10-PCS; 2020-09-25)
DX: O13.4 Gestational [pregnancy-induced] hypertension without significant proteinuria, complicating childbirth (principal); Z37.0 Single live birth; Z20.828 Contact with and (suspected) exposure to other viral communicable diseases; O99.892 Other specified diseases and conditions complicating childbirth; O76 Abnormality in fetal heart rate and rhythm complicating labor and delivery; R00.1 Bradycardia, unspecified; O99.284 Endocrine, nutritional and metabolic diseases complicating childbirth; E06.3 Autoimmune thyroiditis; O99.214 Obesity complicating childbirth; E66.9 Obesity, unspecified; O70.0 First degree perineal laceration during delivery; Z3A.39 39 weeks gestation of pregnancy
CPT/HCPCS: 80053; 82570; 82805; 84156; 85027; 86780; 86850; 86900; 86901; 87340; J0595; J2590; J3010; J3490; S0020